=== PATIENT | male | born 1940 | race Two or more races ===

== ENCOUNTER → 2024-02-06 14:19 | Outpatient (REF) | payer OTHER, SELFPAY | LOC: RAD 14:19 | PROVIDERS: ATTENDING PHYSICIAN Urology; FAMILY PHYSICIAN Family Medicine | DX: N32.81 Overactive bladder (principal) | CPT/HCPCS: 76770 ==

== ENCOUNTER 2024-07-08 09:44 | Outpatient (RCR) | payer OTHER, SELFPAY | END 2024-07-08 23:59 | disposition home or self-care (01) | LOC: RPT 09:44 | PROVIDERS: ATTENDING PHYSICIAN Urology; FAMILY PHYSICIAN Family Medicine | DX: N39.41 Urge incontinence (principal); M62.89 Other specified disorders of muscle; Z73.6 Limitation of activities due to disability; N32.81 Overactive bladder; R39.15 Urgency of urination | CPT/HCPCS: 97110; 97112; 97140; 97163; 97530 ==

== ENCOUNTER 2024-08-05 09:53 | Outpatient (RCR) | payer OTHER, SELFPAY | END 2024-08-05 23:59 | disposition home or self-care (01) | LOC: RPT 09:53 | PROVIDERS: ATTENDING PHYSICIAN Urology; FAMILY PHYSICIAN Family Medicine | DX: N39.41 Urge incontinence (principal); M62.89 Other specified disorders of muscle; Z73.6 Limitation of activities due to disability; N32.81 Overactive bladder; R39.15 Urgency of urination; N40.1 Benign prostatic hyperplasia with lower urinary tract symptoms | CPT/HCPCS: 97014; 97110; 97112; 97530 ==

== ENCOUNTER 2024-09-02 10:53 | Outpatient (RCR) | payer OTHER, SELFPAY | END 2024-09-02 23:59 | disposition home or self-care (01) | LOC: RPT 10:53 | PROVIDERS: ATTENDING PHYSICIAN Urology; FAMILY PHYSICIAN Family Medicine | DX: N39.41 Urge incontinence (principal); M62.89 Other specified disorders of muscle; Z73.6 Limitation of activities due to disability; N32.81 Overactive bladder; R39.15 Urgency of urination; N40.1 Benign prostatic hyperplasia with lower urinary tract symptoms | CPT/HCPCS: 97014; 97110; 97112; 97140; 97530 ==

== ENCOUNTER 2024-09-30 11:11 | Outpatient (RCR) | payer OTHER, SELFPAY | END 2024-09-30 23:59 | disposition home or self-care (01) | LOC: RPT 11:11 | PROVIDERS: ATTENDING PHYSICIAN Urology; FAMILY PHYSICIAN Family Medicine | DX: N39.41 Urge incontinence (principal); M62.89 Other specified disorders of muscle; Z73.6 Limitation of activities due to disability; N32.81 Overactive bladder; N40.1 Benign prostatic hyperplasia with lower urinary tract symptoms; R39.15 Urgency of urination | CPT/HCPCS: 97014; 97112; 97530 ==

== ENCOUNTER 2024-10-07 10:53 | Outpatient (RCR) | payer OTHER, SELFPAY | END 2024-10-07 23:59 | disposition home or self-care (01) | LOC: RPT 10:53 | PROVIDERS: ATTENDING PHYSICIAN Urology; FAMILY PHYSICIAN Family Medicine | DX: N39.41 Urge incontinence (principal); M62.89 Other specified disorders of muscle; Z73.6 Limitation of activities due to disability; N32.81 Overactive bladder; N40.1 Benign prostatic hyperplasia with lower urinary tract symptoms; R39.15 Urgency of urination | CPT/HCPCS: 97110; 97530 ==

== ENCOUNTER 2025-01-28 09:37 | Outpatient (RCR) | payer OTHER, SELFPAY | END 2025-02-02 13:37 | disposition home or self-care (01) | LOC: RPT 09:37 | PROVIDERS: ATTENDING PHYSICIAN Urology; FAMILY PHYSICIAN Family Medicine | DX: N39.41 Urge incontinence (principal); M62.89 Other specified disorders of muscle; Z73.6 Limitation of activities due to disability; N32.81 Overactive bladder; N40.1 Benign prostatic hyperplasia with lower urinary tract symptoms; R39.15 Urgency of urination | CPT/HCPCS: 97112; 97530 ==

== ENCOUNTER → 2025-05-26 13:51 | Outpatient (REF) | payer OTHER, SELFPAY | LOC: RAD 13:51 | PROVIDERS: ATTENDING PHYSICIAN Urology; FAMILY PHYSICIAN Family Medicine | DX: N20.0 Calculus of kidney (principal) | CPT/HCPCS: 76775 ==